=== PATIENT | male | born 1990 | race Caucasian/White ===

== ENCOUNTER 2019-02-23 17:20 | Emergency (ER) | payer OTHER ==
[~2019-02-23] VITALS: Ht 193 cm; Wt 115.7 kg
[~2019-02-23 17:20] MED LIST: Bactrim Ds Tab1 EACH PO; CIME400 PO; CLOT1TC TOP; COUGH; CRUTCH4 USE; DIPH50; HYDACE5 PO; IBUP800 PO; LOPE2C PO; NAPR500 PO; NAPR550 PO; PEPTO BISMOL; PRED20 PO; Percocet 5-3251 EACH PO; ZINC15G; Zofran Odt4 MG SL
[2019-02-23] MEDS ORDERED: Robaxin500 MG PO (19:41)
== END 2019-02-23 19:45 | disposition home or self-care (01) ==
LOC: ER 17:20
DX: S06.0X9A Concussion with loss of consciousness of unspecified duration, initial encounter (principal); M25.512 Pain in left shoulder; M54.2 Cervicalgia; F17.210 Nicotine dependence, cigarettes, uncomplicated; Z90.49 Acquired absence of other specified parts of digestive tract; V40.6XXA Car passenger injured in collision with pedestrian or animal in traffic accident, initial encounter
CPT/HCPCS: 70450; 96372; 99284-25; J1885